=== PATIENT | male | born 1965 | race Caucasian/White ===

== ENCOUNTER 2016-12-05 22:00 | Emergency (ER) | payer OTHER ==
[~2016-12-05 22:00] MED LIST: ACETAMINOPHEN PO; ADVAIR 100-501 EAC1 IH; ADVAIR 100-501 EAC1 INH; ADVAIR 1001 DISK W/D PO; ADVAIR 2501 DISK W/D PO; ADVAIR 500-501 EACH; ADVAIR 500-501 EACH IH; ADVAIR INH; AEROBID INHALER7 GM INH; ALBUTEROL 0.5ML; ALBUTEROL 0.5ML INH; ALBUTEROL 2.5 MG INH; ALBUTEROL INH; ALBUTEROL MININEB; ALBUTEROL MININEB INH; ALBUTEROL MININEB NEB; ALBUTEROL0.83 MG/ML IH; ALBUTEROL0.83 MG/ML NEB; ALBUTEROL17 G1; ALBUTEROL17 G1 IH; ALBUTEROL17 G1 INH; ALBUTEROL17 GM; ALBUTEROL17 GM INH; ALBUTEROL2.5 MG/0.5 IH; ALBUTEROL2.5 MG/0.5 NEB; AMOXICILLIN PO; AMOXICILLIN500 M1 PO; ASPIRINEC PO; ATROVENT HFA12.9 GM; ATROVENT HFA12.9 GM PO; ATROVENT NEB; AZITHROMYCIN250 MG; AZITHROMYCIN250 MG PO; BACTRIM DS TABL1 TAB PO; CIPRO PO; COMBIVENT INH14.7 GM; COMBIVENT INH14.7 GM INH; COMBIVENT RESPIM4 GM IH; COMBIVENT U/D3 M1 INH; COMBIVENT U/D3 ML IH; COMBIVENT14.7 GM INH; DOXYCYCLINE HY100 M1 PO; DOXYCYCLINE HY100 M3 PO; DOXYCYCLINE MO100 MG PO; DOXYCYCLINE PO; DUONEB 2.5-0.5 M3 ML NEB; E-MYCIN250 MG PO; FAMOTIDINE PO; FLEXERIL PO; HYDROCODONE/HO240 ML PO; IPRATROPIUM0.2 MG/ML NEB; KETOPROFEN PO; LEVAQUIN PO; LORATADINE PO; LORTAB 10-5001 EACH PO; MEDROL PO; MEDROL4 MG/DOSE- PO; MOBIC PO; MORGIDOX100 MG PO; MOTRIN600 M2 PO; MUCINEX 600 MG PO; NAMENDA10 MG; NICOTINE PATCH1 BOX TD; NO MEDICATIONS; NON ASPIRIN650 MG PO; NORCO 5/325 TAB1 TAB PO; PERCOCET PO; PERCOCET7.5 PO; PHENERGAN DM1 ML PO; PREDNISONE PO; PREDNISONE1 MG PO; PREDNISONE10 MG PO; PREDNISONE10 MG/DOSE PO; PREDNISONE5 M1 PO; PREDNISONE50 MG PO; PROTONIX PO; PROVENTIL0.83 MG/ML IH; PROVENTIL17 GM INH; PROVENTIL17 GM PO; QVAR7.3 G1 INH; QVAR7.3 GM INH; RELION IH; STOMACH RELIEF262 M1; SYMBICORT INH; SYMBICORT80 PO; TYLENOL325 M1 PO; ULTRAM PO; VENTOLIN IH; VIBRAMYCIN100 M1 PO; ZITHROMAX; ZITHROMAX PO; ZITHROMAX1 G/PKT PO; ZITHROMAX500 MG PO; ZOCOR PO
[2016-12-15] MEDS ORDERED: SYMBICORT INH (10:59)
[2016-12-15] MEDS ORDERED: PROVENTIL INH0.5 ML NEB (10:59)
== END 2016-12-05 22:47 | disposition home or self-care (01) ==
LOC: CED 22:00
DX: K40.90 Unilateral inguinal hernia, without obstruction or gangrene, not specified as recurrent (principal); J44.9 Chronic obstructive pulmonary disease, unspecified; F17.210 Nicotine dependence, cigarettes, uncomplicated; Z98.890 Other specified postprocedural states
CPT/HCPCS: 99283

== ENCOUNTER → 2016-12-15 | Day surgery (SDC) | payer OTHER ==
[~2016-12-15] MED LIST changes: +PROVENTIL INH0.5 ML NEB
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
== END | disposition home or self-care (01) ==
LOC: CSUR 06:13
DX: K40.30 Unilateral inguinal hernia, with obstruction, without gangrene, not specified as recurrent (principal); K40.90 Unilateral inguinal hernia, without obstruction or gangrene, not specified as recurrent; J44.9 Chronic obstructive pulmonary disease, unspecified; F17.210 Nicotine dependence, cigarettes, uncomplicated; Z87.01 Personal history of pneumonia (recurrent); Z79.899 Other long term (current) drug therapy; Z98.890 Other specified postprocedural states
CPT/HCPCS: C1781; J0330; J0690; J1100; J1170; J1885; J2405; J2710; J3010

== ENCOUNTER 2017-03-29 14:35 | Emergency (ER) | payer OTHER ==
[~2017-03-29] VITALS: Ht 177.8 cm; Wt 78.9 kg
--- NOTE | ~2017-03-29 | CT2 ---
[facility] A Service of [facility] RADIOLOGY TEXT RESULTS PATIENT: DANIELA BONNER LOCATION: [facility] : [birth year] UNIT #: [id number] AGE: [address]: Lili Guevara MD SEX: M ORDER DR: [id number] [facility] [address] [place], [place] [address] [id number] MR#: [id number] Acc #: [id number] NAME: DANIELA BONNER. : 1965 SEX: M STUDY DATE/TIME: 03/29/2017 20:08 UNIT: [facility] ROOM: STUDY DESCRIPTION: CT Abd and Pelv W Cont Attending Physician: Lili Guevara M.D. Ordering Physician: Lili Guevara M.D. Primary Care Physician: Sulema Jacob M.D. MEDICAL IMAGING REPORT This report is preliminary unless electronic signature is present EXAM CT abdomen and pelvis with contrast HISTORY Left-sided abdominal pain for a week. FINDINGS Axial images performed through the abdomen and pelvis following IV contrast. Multiplanar reconstructed images were reviewed. This CT exam was performed with one or more of the following radiation dose reduction techniques: automatic exposure control, adjustment of mA and/or kV according to patient size, and iterative reconstruction. ABDOMEN: Lung bases suggest emphysema. Liver, spleen and gallbladder unremarkable. Pancreas and adrenal glands unremarkable. Kidneys unremarkable except for a small left cortical cyst. Retroperitoneum unremarkable. Moderate amount of colonic stool. Stomach and small bowel appear normal. No obstruction. PELVIS: Bladder and prostate appear normal. Bilateral inguinal hernias. Osseous structures remarkable for L4-5 degenerative disc disease and mild grade 1 spondylolisthesis L4 on L5. IMPRESSION 1. No definite acute intraabdominal or intrapelvic pathology. 2. Bilateral inguinal hernias. 3. L4-5 degenerative disc disease. Dictated by... [facility] A Service of [facility] RADIOLOGY TEXT RESULTS PATIENT: DANIELA BONNER LOCATION: [facility] : [birth year] UNIT #: [id number] AGE: [address]: Lili Guevara MD SEX: M ORDER DR: Saroj Lees M.D. THIS IS AN ELECTRONICALLY VERIFIED REPORT Saroj Lees M.D. at 03/30/2017 6:54 PM SYLVIA/marivel TD: 03/30/2017 04:28 JOB #: [id number] MEDICAL IMAGING REPORT Page 1 of 1 COPY
[2017-03-29 18:46] LABS: BASOPHIL# 0.1 X10e3 (0-0.3); BASOPHIL% 1.1 % (0-2.5); DIFF IND NO; EOSINOPHIL# 0.5 X10e3 (0-0.7); EOSINOPHIL% 9.3 % (0.0-7.0); HEMATOCRIT 42.5 % (38.0-50.0); HEMOGLOBIN 14.5 gm/dL (13.0-16.0); LYMPHOCYTE# 1.7 X10e3 (1.0-3.5); MEAN CELL VOLUME 91.1 FL (83-96); MEAN CORPUSCULAR HEMOGLOBIN 31.1 PG (28-34); MEAN CORPUSCULAR HGB CONC 34.1 g/dL (30-36); MEAN PLATELET VOLUME 7.8 FL (6.5-11.5); MONOCYTE# 0.5 X10e3 (0-1.0); MONOCYTE% 9.6 % (3.0-12.0); NEUTROPHIL# 2.5 X10e3 (1.5-7.1); PLATELET COUNT 182 X10e3 (140-420); RED BLOOD COUNT 4.67 X10e (3.90-5.60); RED CELL DISTRIBUTION WIDTH 13.6 % (11.0-15.5); WHITE BLOOD COUNT 5.3 X10e3 (4.0-10.5)
[2017-03-29 19:08] LABS: ALBUMIN SERUM 3.6 g/dL (3.5-5.0); BILIRUBIN, DIRECT 0.1 mg/dL (0.0-0.2); BILIRUBIN,INDIRECT 0.5 mg/dL (0.0-0.9); BILIRUBIN,TOTAL 0.6 mg/dL (0.2-2.0); BUN/CREATININE RATIO 15.71; CALCIUM SERUM 8.7 mg/dL (8.4-10.2); CREATININE SERUM 0.7 mg/dL (0.6-1.4); GLOM FILT RATE Estimated 109.3 mL/min (>60); PROTEIN TOTAL SERUM 6.5 g/dL (6.0-8.3)
[2017-03-29 19:25] LABS: URINE SOURCE CLEAN CATCH
[2017-03-29 19:43] LABS: URINE APPEARANCE CLEAR; URINE BILIRUBIN NEG (NEG); URINE BLOOD NEG (NEG); URINE COLOR YELLOW; URINE GLUCOSE NEG (NEG); URINE KETONE NEG (NEG); URINE LEUKOCYTE ESTERASE NEG (NEG); URINE NITRATE NEG (NEG); URINE PH 5.5 (5-8); URINE PROTEIN NEG (NEG); URINE SPECIFIC GRAVITY 1.021 (1.003-1.035)
[2017-03-29 19:53] LABS: CULTURE INDICATED? NO
== END 2017-03-29 21:08 | disposition home or self-care (01) ==
LOC: CED 14:35
PROVIDERS: Emergency Medicine
DX: K40.20 Bilateral inguinal hernia, without obstruction or gangrene, not specified as recurrent (principal); J45.909 Unspecified asthma, uncomplicated; J44.9 Chronic obstructive pulmonary disease, unspecified; Z98.890 Other specified postprocedural states; F17.210 Nicotine dependence, cigarettes, uncomplicated
CPT/HCPCS: 74177; 80048; 80076; 81003; 83605; 85025; 96361; 96374; 96375; 99284; Q9967